=== PATIENT | female | born 1985 | race Asian ===

== ENCOUNTER 2017-06-12 11:00 | Inpatient (IN) | payer OTHER ==
[2017-06-12 12:21] LABS: Hematocrit 32 % (35-47); Hemoglobin 10.2 g/dl (12.0-16.0); Mean Corpuscular HGB Conc 32 g/dl (31-36); Mean Corpuscular Hemoglobin 26 pg (27-31); Mean Corpuscular Volume 83 fL (80-97); Mean Platelet Volume 11 um3 (7.4-10.4); Platelet Count 97 10^3/ul (150-450); Red Blood Count 3.87 10^6/ul (4.0-5.4); Red Cell Distribution Width 17 % (10.5-15); White Blood Count 8.9 10^3/ul (3.5-10.8)
[2017-06-12 12:42] LABS: ABS Basophils 0 10^3/ul (0-0.2); ABS Eosinophils 0 10^3/ul (0-0.6); ABS Lymphocytes 0.9 10^3/ul (1.0-4.8); ABS Monocytes 0.5 10^3/ul (0-0.8); ABS Neutrophils 7.5 10^3/ul (1.5-7.7); ABS Nucleated RBC 0 10^3/ul; Eosinophil % 0.2 % (0-6); Lymphocyte % 9.8 % (25-47); Nucleated Red Blood Cells % 0.1
[2017-06-12] MEDS ORDERED: OBEPIDURAL* 250 ML EPIDURAL ONE (13:22)
[2017-06-12] MEDS ORDERED: EPHEDrine (Pressors)* 50 MG/ML VIAL IV PUSH PRN (13:42)
[2017-06-12] MEDS ORDERED: Sodium Citrate/Citric Acid* 15 ML UDC PO PRN (13:42)
[2017-06-12] MEDS ORDERED: Phenylephrine IV* 40 MCG/ML 10 ML SYRINGE IV PUSH PRN (13:42)
[2017-06-12] MEDS ORDERED: Famotidine TAB* 20 MG PO PRN (13:42)
[2017-06-12] MEDS ORDERED: OBEPIDURAL* 250 ML EPIDURAL SCH (14:00)
[2017-06-12] MEDS ORDERED: Oxytocin in LR* 20 UNITS/1,000 ML BAG IVPB ONE (16:43)
[2017-06-12] MEDS ORDERED: Oxytocin in LR* 20 UNITS/1,000 ML BAG IVPB SCH (17:00)
[2017-06-12] MEDS ORDERED: ceFOXitin 2 GM IVPREMIX* 2 GM/50 ML BAG ONE (22:42)
[2017-06-12] MEDS ORDERED: Sodium Citrate/Citric Acid* 15 ML UDC ONE (22:42)
[2017-06-12] MEDS ORDERED: OXYTOCIN* 10 UNITS/ML 1 ML VIAL ONE (23:41)
[2017-06-12] MEDS ORDERED: Lidocaine 2% PF* 10 ML AMP ONE (23:54)
[2017-06-12] MEDS ORDERED: Morphine PF AMP (0.5MG/ML)* 5 MG/10 ML AMP ONE (23:54)
[2017-06-13] MEDS ORDERED: fentaNYL* 50 MCG/ML 2 ML VIAL (100 MCG VIAL) ONE (00:20)
[2017-06-13] MEDS ORDERED: Glycerin ADULT SUPP PR PRN (00:34)
[2017-06-13] MEDS ORDERED: Acetaminophen TAB* 325 MG PO PRN (00:34)
[2017-06-13] MEDS ORDERED: Dibucaine 1% 28.35 GM TUBE PR PRN (00:34)
[2017-06-13] MEDS ORDERED: Witch Hazel PAD* JAR TOPICAL PRN (00:34)
[2017-06-13] MEDS ORDERED: Nalbuphine* 20 MG/ML 1 ML VIAL IV PRN (00:40)
[2017-06-13] MEDS ORDERED: Naloxone* 0.4 MG/ML 1 ML VIAL IV PRN ×2 (00:40→00:44)
[2017-06-13] MEDS ORDERED: fentaNYL* 50 MCG/ML 2 ML VIAL (100 MCG VIAL) IV PRN (00:44)
[2017-06-13] MEDS ORDERED: Ondansetron INJ* 2 MG/ML VIAL ONE (00:48)
[2017-06-13] MEDS: Ondansetron INJ* 2 MG/ML VIAL IV PRN ×2 (00:53→15:35)
[2017-06-13] MEDS: Ibuprofen TAB* 400 MG PO SCH ×3 (01:18→10:15)
[2017-06-13] MEDS: oxyCODONE/Acetamin 5/325 MG* TAB PO PRN ×3 (08:57→20:41)
[2017-06-13] MEDS: Simethicone TAB* 80 MG TAB.CHEW PO SCH ×4 (08:57→21:00)
[2017-06-13] MEDS: Docusate CAP* 100 MG PO SCH ×3 (08:57→21:00)
[2017-06-13 09:07] LABS: ABS Basophils 0 10^3/ul (0-0.2); ABS Eosinophils 0 10^3/ul (0-0.6); ABS Lymphocytes 0.8 10^3/ul (1.0-4.8); ABS Monocytes 0.5 10^3/ul (0-0.8); ABS Neutrophils 9.2 10^3/ul (1.5-7.7); ABS Nucleated RBC 0 10^3/ul; Eosinophil % 0.1 % (0-6); Hematocrit 26 % (35-47); Hemoglobin 8.8 g/dl (12.0-16.0); Lymphocyte % 7.4 % (25-47); Mean Corpuscular HGB Conc 34 g/dl (31-36); Mean Corpuscular Hemoglobin 27 pg (27-31); Mean Corpuscular Volume 82 fL (80-97); Mean Platelet Volume 10 um3 (7.4-10.4); Nucleated Red Blood Cells % 0; Platelet Count 86 10^3/ul (150-450); Red Blood Count 3.21 10^6/ul (4.0-5.4); Red Cell Distribution Width 18 % (10.5-15); White Blood Count 10.6 10^3/ul (3.5-10.8)
[2017-06-13] MEDS: Ferrous Gluconate TAB* 324 MG TAB PO SCH ×2 (09:38→21:00)
[2017-06-13] MEDS ORDERED: EPHEDrine (Pressors)* 50 MG/ML VIAL ONE (10:24)
[2017-06-13] MEDS ORDERED: Zolpidem TAB* 5 MG PO PRN (16:01)
[2017-06-13] MEDS ORDERED: oxyCODONE/Acetamin 5/325 MG* TAB PO PRN (16:01)
[2017-06-14] MEDS: oxyCODONE/Acetamin 5/325 MG* TAB PO PRN ×4 (03:20→20:00)
[2017-06-14] MEDS: Ibuprofen TAB* 600 MG PO PRN ×4 (03:21→22:33)
[2017-06-14] MEDS: Ferrous Gluconate TAB* 324 MG TAB PO SCH ×2 (09:11→21:28)
[2017-06-14] MEDS: Docusate CAP* 100 MG PO SCH ×3 (09:12→21:28)
[2017-06-14] MEDS: Simethicone TAB* 80 MG TAB.CHEW PO SCH ×4 (09:12→21:28)
--- NOTE | 2017-06-14 13:03 | PTEDU ---
Patient Name: PEPPER HUERTA GINNYMARI ANGELINAGuillermina selected video: Never Ever Shake a Baby to view on 06/14/2017 at 1:02:28 PM from [facility]_ [id number]
--- NOTE | 2017-06-14 13:12 | PTEDU ---
Patient Name: PEPPER HUERTA PEPPER HUERTA selected video: Follow Me Mum: [employer] to view on 8 at 1:11:31 PM from [id number]
--- NOTE | 2017-06-14 17:01 | OP ---
DATE OF OPERATION: 06/12/17 - ROOM #113 DATE OF : 81 SURGEON: Gaye Méndez MD MILL FEEDER: Marly Sun CM ANESTHESIOLOGIST: aMo Durham DO ANESTHESIA: Epidural. PRE-OP DIAGNOSIS: Intrauterine gestation at 39 weeks gestational age, active labor with arrest of descent. POST-OP DIAGNOSIS: Intrauterine gestation at 39 weeks gestational age, active labor with arrest of descent. OPERATIVE PROCEDURE: Primary lower transverse section. INDICATIONS: The patient arrived to Labor and Delivery in active labor and progressed as expected for a to 8 cm. The labor pattern then became irregular and she remained at 8 cm for more than 6 hours with an IUPC placed showing adequate contractions. The baby's head did not descend below -2 station. Therefore, a discussion was had with the patient and she opted to proceed with primary section. Risks of the procedure were reviewed with her and all questions were answered. Consents were signed. ESTIMATED BLOOD LOSS: 800 mL. FLUIDS: Crystalloid. DRAINS: Lopez catheter. COUNTS: All correct. COMPLICATIONS: None. DESCRIPTION OF PROCEDURE: The patient was taken to the operating room where her epidural anesthesia was found to be adequate. She was prepped and draped in the dorsal supine position with a leftward tilt. SCDs had also been placed onto her legs. A time-out was performed and a Pfannenstiel skin incision was made with a scalpel and carried down to the underlying layer of fascia with a combination of the scalpel and the Bovie cautery. The fascia was incised on either side of the midline and the fascial incision extended laterally with sharp dissection with the Wilkinson scissors. The inferior edge of the fascial incision was grasped with Court clamps, tented up, and dissected down with blunt dissection. Then, the superior edge of the fascial incision was grasped with Court clamps, tented up, and dissected down with a combination of sharp and blunt dissection. The rectus muscles were in the midline and the peritoneum was entered bluntly. The incision was extended laterally with a combination of sharp and blunt dissection. The bladder blade was inserted and a transverse incision was made in the lower uterine segment with a scalpel. The uterine incision was extended superiorly and inferiorly with blunt pressure. The was found to be in AFSHAN position, but the head was wedged into the side of the pelvis. The head was brought out of the pelvis and delivered through the uterine incision with fundal pressure. This was followed by delivery of the shoulders and the rest of the body. The cord was milked towards the baby and clamped x2 and cut. Cord blood was sent and cord blood gases were collected. The baby was handed to the sports internship. The placenta was then delivered with fundal massage and gentle cord traction. The uterus was cleared of clots and debris. There was a small extension of the uterine incision in the midline, this was repaired with 3-0 Vicryl in a very small running locked fashion, then the uterine incision was closed with 0 Vicryl in a running locked fashion, with the second layer of suture imbricating the first. Good hemostasis was noted along the uterine incision. The abdomen was irrigated and cleared of clots and debris. The peritoneum was then closed with 3-0 Vicryl in a running unlocked fashion. Good hemostasis was noted in the next layer and the fascia was then closed with 0 Vicryl in a running unlocked fashion. Good hemostasis was noted then in the subcuticular layer with cautery and the skin was then closed with 4-0 Monocryl in a running subcuticular fashion. Mastisol and Steri-Strips were placed. The dressing was covered and the patient was moved to the stretcher and taken to the recovery room in stable condition. [id number]/[facility] #: [id number] SURY
[2017-06-15] MEDS: oxyCODONE/Acetamin 5/325 MG* TAB PO PRN (00:20)
[2017-06-15] MEDS: Ibuprofen TAB* 600 MG PO PRN ×3 (06:56→19:52)
[2017-06-15] MEDS: Docusate CAP* 100 MG PO SCH ×3 (09:50→19:52)
[2017-06-15] MEDS: Ferrous Gluconate TAB* 324 MG TAB PO SCH ×2 (09:50→19:52)
[2017-06-15] MEDS: Simethicone TAB* 80 MG TAB.CHEW PO SCH ×2 (09:50→12:47)
[2017-06-16] MEDS: Ibuprofen TAB* 600 MG PO PRN (04:18)
[2017-06-16 08:28] VITALS: BP 112/68
[2017-06-16] MEDS: Ferrous Gluconate TAB* 324 MG TAB PO SCH (09:14)
[2017-06-16] MEDS: Simethicone TAB* 80 MG TAB.CHEW PO SCH (09:15)
[2017-06-16] MEDS: Docusate CAP* 100 MG PO SCH (09:15)
== END 2017-06-16 12:12 | disposition home or self-care (01) | DRG 766 ==
LOC: MCHOBOUT 11:00 → MCHOB 11:34
PROVIDERS: ADMIT Midwife; ATTEND Obstetrics & Gynecology
PROC: 10907ZC Drainage of Amniotic Fluid, Therapeutic from Products of Conception, Via Natural or Artificial Opening (ICD-10-PCS; 2017-06-12)
PROC: 10D00Z1 Extraction of Products of Conception, Low, Open Approach (ICD-10-PCS; principal; 2017-06-12 23:24)
DX: O48.0 Post-term pregnancy (principal); F32.9 Major depressive disorder, single episode, unspecified; O62.0 Primary inadequate contractions; O99.344 Other mental disorders complicating childbirth; F41.9 Anxiety disorder, unspecified; O77.0 Labor and delivery complicated by meconium in amniotic fluid; Z3A.41 41 weeks gestation of pregnancy; Z37.0 Single live birth
CPT/HCPCS: 36415; 85025; 85060; 86850; 86900; 86901; 88307; A9270-GY; J0694; J2001; J2405; J2590; J3010